=== PATIENT | female | born 1985 | race Caucasian/White ===

== ENCOUNTER 2018-01-12 13:14 | Inpatient (IN) | payer OTHER ==
[~2018-01-12] VITALS: Ht 152.4 cm; Wt 72.6 kg
[2018-01-12 16:07] LABS: ABSOLUTE BASOPHIL COUNT 0 /CUMM (0.0-0.2); ABSOLUTE EOSINOPHIL COUNT 0.1 /CUMM (0.0-0.7); ABSOLUTE GRANULOCYTE CT 7.5 /CUMM (1.4-6.5); ABSOLUTE LYMPH COUNT 1.1 /CUMM (1.2-3.4); ABSOLUTE MONOCYTE COUNT 0.6 /CUMM (0.10-0.60); BASOPHIL % 0.2 % (0.0-2.0); EOSINOPHIL % 1.3 % (0-5); GRANULOCYTE % 80.5 % (42.2-75.2); HEMATOCRIT 37.8 % (37-47); MEAN CORPUSCULAR HGB 30.4 PG (27.0-31.0); MEAN CORPUSCULAR HGB CONC 33.6 G/DL (33.0-37.0); MEAN CORPUSCULAR VOLUME 90.5 FL (81.0-99.0); MEAN PLATELET VOLUME 7.7 FL (7.4-10.4); PLATELET COUNT 253 /CUMM (130-400); RBC DISTRIBUTION WIDTH 13.2 % (11.5-14.5); RED BLOOD CELL CT 4.18 /CUMM (4.20-5.40); WHITE BLOOD CELL COUNT 9.3 /CUMM (4.8-10.8)
--- NOTE | 2018-01-12 17:44 | History & Physical ---
General Information and HPI MD Statement: I have seen and personally examined DALY RANKIN and documented this H&P. The patient is a 32 year old female at [39] weeks and [3] days gestation who presented with a chief complaint of [ctx]. Source of Information: patient Exam Limitations: no limitations History of Present Illness: 32yo, 39 3/7wks, c/o ctxs since am, getting stronger and closer, came in for evaluation,denies VB or LOF, reports GFM. initial exam was 3 cm, then cervical dilation progress to 4cm. acre started at 11 wks, uncomplicated thus far. GBS positive. 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 History : 2 Para: 0 Last Menstrual Period: unknown Estimated Delivery Date: 01/16/2018 Past power and recovery superintendent History: non-contributory Medical History Blood Transfusion Hx: No Neurological: NONE EENT: NONE Cardiovascular: NONE Respiratory: NONE Gastrointestinal: NONE Hepatic: NONE Renal: NONE Musculoskeletal: NONE Psychiatric: NONE Endocrine: NONE Blood Disorders: NONE Cancer(s): NONE [employer] DELIVERY SPECIALIST/Reproductive: NONE Surgical History Pertinent Surgical History: hernia repair 2001 Past Family/Social History Psychosocial History Smoking Status: Never Smoked ETOH Use: denies use Illicit Drug Use: denies illicit drug use Review of Systems Review of Systems Constitutional: Reports: no symptoms. EENTM: Reports: no symptoms. Cardiovascular: Reports: no symptoms. Respiratory: Reports: no symptoms. GI: Reports: no symptoms. Genitourinary: Reports: see HPI. Musculoskeletal: Reports: no symptoms. Skin: Reports: no symptoms. Neurological/Psychological: Reports: no symptoms. Hematologic/Endocrine: Reports: no symptoms. Immunologic/Allergic: Reports: no symptoms. All Other Systems: Reviewed and Negative Exam & Diagnostic Data Last 24 Hrs of Vital Signs/I&O Intake & Output 01/12 1600 08/04 0800 08/04 0000 Intake Total Output Total Balance Patient 72.575 kg Weight Obstetric Exam Wgt Gained During : 35lbs Pelvimetry: adequate Dilation (cm): 6 Effacement (%): 90 Station: -1 Membranes: intact Fluid: unknown Fundal Height (cm): 39 Multiple Gestation? No Contractions: q3-4 min #1 - FHR Baseline: 170 Category: 1 Estimated Weight: 3200g Presentation: vertex Patient for Induction? No Physical Exam: VSS General: NAD Abdomen: gravid, soft, nontender Ext: DCT (-) Labs Blood Type & Rh: A positive Antibody Screen: negative Hct/Hgb & Platelets #1: 13.1/39.1%,PLT 026429 Hct/Hgb & Platelets #2: 12.1/38%,PLT [id number] Rubella: not immune VDRL #1: negative VDRL #2: negative HbsAg: negative HIV #1: negative HIV #2 negative 1 Hr P Group B Strep: positive Initial Ultrasound: IUP at 11 wks Anatomy Ultrasound: nl Genetic Testing: nl Last 24 Hrs of Labs/Alfie: Laboratory Tests 01/12/18 1545: CBC w Diff NO MAN DIFF REQ, RBC 4.18 L, MCV 90.5, MCH 30.4, MCHC 33.6, RDW 13.2 , MPV 7.7, Gran % 80.5 H, Lymphocytes % 11.8 L, Monocytes % 6.2, Eosinophils % 1.3, Basophils % 0.2, Absolute Granulocytes 7.5 H, Absolute Lymphocytes 1.1 L, Absolute Monocytes 0.6, Absolute Eosinophils 0.1, Absolute Basophils 0 01/12/18 1345: Urine Color YEL, Urine Clarity CLEAR, Urine pH 7.0, Ur Specific Arabi 1.015, Urine Protein NEG, Urine Ketones NEG, Urine Nitrite NEG, Urine Bilirubin NEG, Urine Urobilinogen 0.2, Ur Leukocyte Esterase NEG, Ur Microscopic EXAM NOT REQUIRED, Urine Hemoglobin NEG, Urine Glucose NEG Assessment/Plan Assessment/Plan: 32yo, 39 3/7wks labor 1. admit pt, admission labs 2. antibiotic fdor GBS prophylaxis 3. pain management as needed 4. will mon itor closely As Ranked By This Provider Problem List: 1. Core Measures Venous Thromboembolism VTE Risk Factors / No Mechanical VTE Prophylaxis d/t LowRisk-No Interven Req'd No VTE Pharm Prophylaxis d/t LowRisk-No Interven Req'd Attending MD Review Statement Attending Statement Attending MD Statement: examined this patient, discussed with family, discussed w/nursing
[2018-01-12] MEDS ORDERED: PRENATAL MULTI1 EAC2 PO (19:35)
--- NOTE | 2018-01-12 21:01 | PN- OBGYN ---
Surgical Brief Attending Note Brief Attending Note: pt is comfortable with epidural, no complaints. she received 2 doses of PCN so far on TOCO: ctxs q 4-5 min, FHR baseline 130, moderate variability cervix 6cm/90%/-2, AROM, meconium stained fluid will start pitocin augmentation, monitor closely
--- NOTE | 2018-01-13 01:04 | Labor & Delivery Summary ---
Delivery Summary Vaginal Delivery: Vaginal: vertex Episiotomy/Lacerations: Episiotomy/Lacerations: 2ND DEGREE Type: 2ND DEGREE Repair: 3-0 vicryo Anesthesia: epidural, local Placenta: Placenta: spontanteous, normal, 3 vessel, nuchal cord (x_) (tight nuchal cord x1) Anesthesia: epidural Baby's Weight: 6lb13 oz Apgars - 1 Min: 8 Apgars - 5 Min: 9 Additional Comments: Patient fully dilated, pushed well, spontaneously delivered a viable male in cephalic presentation, CATHERINE position, head delivered atraumatically, tight nuchal cord 1, clamped and cut, shoulder and rest of the body delivered without difficulty, baby cried and put on mother's chest, 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 Placenta delivered spontaneously, intact, three-vessel cord. Second- degree laceration repaired with 3-0 Vicryl using standard technique. EBL 400 mL. Patient tolerated the procedure well, instruments, lap and needle counts were correct. She is in recovery room in stable condition.
[2018-01-14 08:53] LABS: ABSOLUTE BASOPHIL COUNT 0 /CUMM (0.0-0.2); ABSOLUTE EOSINOPHIL COUNT 0.1 /CUMM (0.0-0.7); ABSOLUTE GRANULOCYTE CT 4.3 /CUMM (1.4-6.5); ABSOLUTE LYMPH COUNT 1.9 /CUMM (1.2-3.4); ABSOLUTE MONOCYTE COUNT 0.4 /CUMM (0.10-0.60); BASOPHIL % 0.6 % (0.0-2.0); EOSINOPHIL % 1.8 % (0-5); GRANULOCYTE % 64.3 % (42.2-75.2); MEAN CORPUSCULAR HGB CONC 33.8 G/DL (33.0-37.0); MEAN CORPUSCULAR VOLUME 91.9 FL (81.0-99.0); MEAN PLATELET VOLUME 7.4 FL (7.4-10.4); PLATELET COUNT 197 /CUMM (130-400); RBC DISTRIBUTION WIDTH 13.2 % (11.5-14.5); RED BLOOD CELL CT 3.57 /CUMM (4.20-5.40); WHITE BLOOD CELL COUNT 6.7 /CUMM (4.8-10.8)
--- NOTE | 2018-01-14 09:07 | PN- OBGYN ---
Surgical Brief Attending Note Brief Attending Note: PPD1 Patient happy, in good spirits, just has "pain down there" from episiotomy and hemorrhoids. +void. Ambulating. Tolerating POs. Would like a stool softener. afebrile, VS normal Abd - soft, NT Fundus - firm, NT Perineum - intact, dry, hemorrhoids swollen, soft Extr - benign A: stable swollen painful hemorrhoids P: routine care stool softener BID until BM, Anusol HC Pt. requesting circumcision for her son. Risks, benefits, purpose, and alternatives d/w pt. questions answered and informed consent obtained.
[2018-01-14 09:08] LABS: HEMATOCRIT 32.8 % (37-47)
[2018-01-15] MEDS ORDERED: IBUPROFEN800 M1 PO (08:57)
--- NOTE | 2018-01-15 09:02 | PN- OBGYN ---
Surgical Brief Attending Note Brief Attending Note: ppd#2 pt is resting in bed, no complaints. PE: VSS General: NAD CV RRR Lungs CTA B/L Abdomen: soft, nontender, uterus firm, fundus below umbilicus, lochia mild Ext: DCT (-) A/P: 32yo, s/p , PPD #2 1. encourage ambulation and breast feeding 2. RT PP care 3. will d/c home, f/u in office in 2 wks and 6 wks, discharge instructions given , she understand.
== END 2018-01-15 10:50 | DRG 775 ==
LOC: CBCO 13:14 → GNO 15:25
PROVIDERS: Obstetrics & Gynecology
PROC: 10E0XZZ Delivery of Products of Conception, External Approach (ICD-10-PCS; principal; 2018-01-13)
PROC: 0KQM0ZZ Repair Perineum Muscle, Open Approach (ICD-10-PCS; principal; 2018-01-13)
DX: O70.1 Second degree perineal laceration during delivery (principal); O99.824 Streptococcus B carrier state complicating childbirth; O69.1XX0 Labor and delivery complicated by cord around neck, with compression, not applicable or unspecified; Z3A.39 39 weeks gestation of pregnancy; Z37.0 Single live birth
CPT/HCPCS: GNOP; GNOS; 36415; 81003; 87086; J2405; J7120